=== PATIENT | female | born 1990 | race Caucasian/White ===

== ENCOUNTER 2021-01-19 05:54 | Day surgery (SDC) | payer BC ==
[~2021-01-19] VITALS: Ht 167.6 cm; Wt 86.8 kg
[2021-01-19 06:55] LABS: MICROSCOPIC AUTO
[2021-01-19 06:59] LABS: BASOPHILS % (AUTO) 1 % (0-1); EOSINOPHILS % (AUTO) 2 % (1-7); LYMPHOCYTES % (AUTO) 26 % (22-44); MEAN CORPUSCULAR HEMOGLOBIN 29.2 pg (27.0-34.8); MEAN CORPUSCULAR HGB CONC 33.7 g/dL (32.4-35.8); MEAN PLATELET VOLUME 7.6 fL (7.4-10.4); MONOCYTES % (AUTO) 7 % (2-9); NEUTROPHILS % (AUTO) 64 % (42-75); PLATELET COUNT 334 x10^3/uL (130-400); RED BLOOD COUNT 4.78 x10^6/uL (3.82-5.3); RED CELL DISTRIBUTION WIDTH 13.5 % (9.6-15.2)
[2021-01-19] MEDS ORDERED: METHYLERGONOVINE 0.2 MG/ML IM ONE (06:59)
[2021-01-19] MEDS ORDERED: SILVER NITRATE STICK TP ONE (06:59)
[2021-01-19] MEDS ORDERED: OXYTOCIN 10 UNITS/ML, 1ML ONE (06:59)
[2021-01-19] MEDS ORDERED: MISOPROSTOL 200 MCG TABLET ONE (06:59)
[2021-01-19] MEDS ORDERED: BUPIVACAINE/PF 0.25% ONE (06:59)
[2021-01-19] MEDS ORDERED: VASOPRESSIN 20 UNIT/ML, 1ML ONE ×2 (07:00→07:01)
[2021-01-19 07:08] LABS: ALANINE AMINOTRANSFERASE 14 U/L (12-78); ALBUMIN 3.1 g/dL (3.4-5.0); ANION GAP 8 mmol/L (5-15); CALCIUM 8.8 mg/dL (8.5-10.1); CHLORIDE 110 mmol/L (98-107); CREATININE 0.57 mg/dL (0.55-1.02)
[2021-01-19 07:11] LABS: ALKALINE PHOSPHATASE 59 U/L (45-117); BILIRUBIN,TOTAL 0.4 mg/dL (0.2-1.0); TOTAL PROTEIN 6.9 g/dL (6.4-8.2)
[2021-01-19 07:12] VITALS: BP 103/72
[2021-01-19] MEDS ORDERED: CHLORHEXIDINE 15 ML UDC PO ONE (07:30)
[2021-01-19] MEDS ORDERED: LACTATED RINGERS 1,000 ML IV SCH (07:30)
[2021-01-19] MEDS ORDERED: MIDAZOLAM 1 MG/ML, 2ML ONE (07:32)
[2021-01-19] MEDS ORDERED: FENTANYL PF 100 MCG/2ML ONE (07:32)
[2021-01-19 07:34] LABS: BASOPHILS % (AUTO) 1 % (0-1); EOSINOPHILS % (AUTO) 2 % (1-7); LYMPHOCYTES % (AUTO) 25 % (22-44); MEAN CORPUSCULAR HEMOGLOBIN 29.5 pg (27.0-34.8); MEAN PLATELET VOLUME 7.6 fL (7.4-10.4); MONOCYTES % (AUTO) 7 % (2-9); NEUTROPHILS % (AUTO) 65 % (42-75); PLATELET COUNT 327 x10^3/uL (130-400); RED BLOOD COUNT 4.47 x10^6/uL (3.82-5.3); RED CELL DISTRIBUTION WIDTH 13.6 % (9.6-15.2)
[2021-01-19] MEDS ORDERED: PROPOFOL 100 ML ONE (07:35)
[2021-01-19] MEDS ORDERED: MEPERIDINE/PF 25MG/0.5ML IVPush PRN (08:00)
[2021-01-19] MEDS ORDERED: ONDANSETRON 2MG/ML, 2ML IVPush PRN (08:00)
[2021-01-19] MEDS ORDERED: OXYcodone 5 MG/5 ML ORAL.SOL UDC PO PRN (08:00)
[2021-01-19] MEDS ORDERED: METHOCARBAMOL 1,000 MG in DEXTROSE 5% 100 ML IV PRN (08:00)
[2021-01-19] MEDS ORDERED: LORazepam 2 MG/ML, 1ML IVPush PRN (08:00)
[2021-01-19] MEDS ORDERED: PROMETHAZINE 25 MG SUPP PR PRN (08:00)
[2021-01-19] MEDS ORDERED: FENTANYL PF 100 MCG/2ML IV PRN (08:00)
[2021-01-19] MEDS ORDERED: PROMETHAZINE 25 MG/ML, 1ML IVPush PRN (08:00)
[2021-01-19] MEDS ORDERED: ACETAMINOPHEN 325 MG TABLET PO PRN (08:00)
[2021-01-19] MEDS ORDERED: HYDROmorphone 1 MG/ML, 1ML INJ IVPush PRN (08:00)
[2021-01-19] MEDS ORDERED: ONDANSETRON 2MG/ML, 2ML ONE (08:13)
[2021-01-19] MEDS ORDERED: CEFAZOLIN 1,000 MG ONE (08:13)
[2021-01-19] MEDS ORDERED: KETOROLAC 30 MG/1 ML ONE (08:13)
[2021-01-19] MEDS ORDERED: DEXAMETHASONE 4 MG/ML, 1ML ONE (08:13)
[2021-01-19] MEDS ORDERED: PROPOFOL 10 MG/ML, 20ML ONE (08:13)
[2021-01-19] MEDS ORDERED: DOXYCYCLINE 100MG TABLET PO ONE (09:30)
== END 2021-01-19 09:50 | disposition home or self-care (01) ==
LOC: OUT 05:54
PROVIDERS: ATTEND Student in an Organized Health Care Education/Training Program
DX: O02.1 Missed abortion (principal); F32.9 Major depressive disorder, single episode, unspecified; G43.909 Migraine, unspecified, not intractable, without status migrainosus; Z20.822 Contact with and (suspected) exposure to COVID-19; Z79.899 Other long term (current) drug therapy; Z90.49 Acquired absence of other specified parts of digestive tract
CPT/HCPCS: 36415; 59820; 80053; 81001; 85025; 86850; 86900; 87086; 87635; 88305; J0690; J1100; J1885; J2250; J2405; J2704; J3010; J7120; J2210; J2590